=== PATIENT | female | born 1960 | race Caucasian/White ===

== ENCOUNTER 2023-05-01 06:58 | Inpatient (IN) ==
[2023-05-01] MEDS ORDERED: ONDANSETRON INJ 2 MG/ML 2 ML VIAL ONE (06:59)
[2023-05-01] MEDS ORDERED: SODIUM CHLORIDE 0.9% 500 ML IV STA (07:04)
[2023-05-01] MEDS ORDERED: MECLIZINE HCL 25 MG TAB PO STA (07:04)
--- NOTE | 2023-05-01 07:09 | Emergency Department Note ---
Impression & Plan Vertigo ADMIT ED Provider Note HPI: The patient is a 62-year-old female with stated history of vertigo, presents the emergency department with a chief complaint of dizziness and nausea and vomiting that began at 5:30 AM. Patient states that she has been dealing with vertigo now for about 7 months. Patient states she believes this coincides with when she was diagnosed with COVID-19. Patient states that she has not had an episode "this bad" in the past 7 months. Patient states that when she woke to go to the restroom at 5:30 AM she felt as if the room was spinning and felt acutely nauseous. She has had several episodes of vomiting. She therefore contacted E for transport to the ED. On arrival the patient is alert, she is with stable vital signs, she is in mild distress secondary to nausea and vomiting, she answers questions appropriately and does not display any focal deficits. ROS: - Per HPI Differential Diagnosis: Posterior circulation stroke, peripheral vertigo, dehydration/acute kidney injury, critical electrolyte abnormalities, amongst other potential pathologies. *Outpatient medications and allergy history reviewed. *Pertinent external medical records reviewed. 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 Patient's physical exam is reassuring however she is in mild distress secondary to nausea. She states that she has a history of peripheral vertigo but she has not had episodes this severe in the past. Lab work shows no leukocytosis, hemoglobin is normal, platelet count is normal, CMP shows a mild hypokalemia at 3.3, no transaminitis, bilirubin is normal, troponin is negative x1, EKG does not show any acute ischemic changes per my interpretation. CT imaging of the head was obtained that does not show any evidence of an acute intracranial process. Despite receiving IV fluids and Zofran patient states that she continues to feel poorly upon return from CT imaging. She was ordered meclizine and had an episode of vomiting shortly after attempting to take the meclizine. Given this, patient was given a dose of IV Valium. MRI imaging of the brain was ordered however when the patient arrived at MRI she stated that she was certain that she could not tolerate the MRI despite receiving Valium and therefore was returned to her room in the ER. Given that the patient remains symptomatic, I do feel she will require admission. I did discuss the case with the on-call midlevel provider for [facility], Lois Smith NP, who requested CT angiography to be performed given that MRI is unable to be obtained. I think this is reasonable and therefore I did discuss the possibility of obtaining CT angiography of the head and neck with the patient, she does mention a history of a reaction possibly to IV contrast, she tells me she had an outpatient CT scan with contrast done and several hours later when she was at home she developed some lip swelling. She states that she went to urgent care and was treated with Benadryl and the lip swelling went away. She did not have any shortness of breath or swelling in her throat. We did discuss obtaining CT angiography with pretreatment with IV steroids and IV Benadryl and the patient is in agreement. Patient was therefore ordered IV Solu-Medrol and IV Benadryl. CT angiography of the head and neck were obtained and did not show any evidence of obvious vascular abnormalities or large vessel occlusion. There is mention of filling d efect in the superior portion of the chest recommending follow-up CTA of the chest to rule out PE which will be deferred to the admitting team as the patient will be admitted for symptomatic management of refractory vertigo. She does not complain of any chest pain or shortness of breath, EKG does not show any ischemic changes, troponin is negative, I have low suspicion for an acute PE. Patient is in agreement for admission, [facility] hospitalist service was consulted for admission and the patient was placed for admission to the service of Dr. Morales. Consultants: Hospitalist service, Dr. Morales Disposition discussion held by myself with: Patient Diagnosis: 1. Nausea and vomiting, acute 2. Dizziness/vertigo, acute 3. Hypokalemia, acute Disposition: Admission Blake Villeda DO Emergency Medicine Past Med/Surg History Medical History Cardiac murmur >35 yrs ago was told by a dr that she had a possible murmur; had an echo 35 yrs ago unsure where thinks may have been mn; no issues since, was told to cut caffeine Tachycardia pt states has had elevated HR for yrs, was advised to avoid caffeine, FHx of tachycardia-pt unable to provide further details Surgical History Hx of hammer toe correction >30 yrs ago S/P cataract extraction left/right S/P wisdom tooth extraction >45 yrs ago Family History Mother Diabetes Sister Breast cancer Brother Diabetes Social History Smoking Status: Never smoker Second Hand Exposure: No; Do You Dip or Chew Tobacco: No; Hx Alcohol Use: No Hx Substance Use: No Preferred Language: Ecuadorean Communication Ability: Effective Harbor Master Required: No Beliefs That Will Affect Care: None Current Living Situation: Family Current Living Situation Comment: lives w/ daughter Dilma Feels Safe at Home: Yes Assistive Devices: Cane and Glasses Allergies Allergies Allergy/AdvReac Type Severity Reaction Status Date / Time codeine Allergy Unknown RASH Unverified 03/01/22 08:47 Penicillins Allergy Unknown Rash Verified 03/01/22 08:47 Sulfa (Sulfonamide Allergy Unknown RASH Unverified 03/01/22 08:47 Antibiotics) Iodinated Contrast Media Allergy Swelling Verified 05/01/23 08:34 of Lip/Tongue/Throat Home Meds Home Medications Medication Instructions Recorded Confirmed cetirizine 10 mg tablet 10 mg PO DAILY 05/01/23 05/01/23 Results & Data (ED) Vital Signs Vital Signs - 24 hr 05/01/23 07:02 05/01/23 07:08 05/01/23 07:16 Temperature 36.1 C L Temperature Source Axillary Pulse Rate 68 66 Pulse Rate from SpO2 Sensor Pulse Rhythm Regular Pulse Strength Normal Respiratory Rate 18 Respiratory Effort / Characteristics Non-Labored Respiratory Depth Normal Respiratory Pattern Regular Blood Pressure 123/80 Blood Pressure Mean 94 Blood Pressure Position Sitting Pulse Oximetry 98 99 Oxygen Delivery Method Room Air Room Air Oxygen Flow Rate Sepsis Recent Fever Within 48 Hours No Sepsis New/Unexplained Change in Mental Status No Sepsis Action Taken by Nursing No Action Required 05/01/23 07:32 05/01/23 07:54 05/01/23 08:00 Temperature Temperature Source Pulse Rate 61 75 70 Pulse Rate from SpO2 Sensor 62 75 71 Pulse Rhythm Pulse Strength Respiratory Rate 12 10 L 21 Respiratory Effort / Characteristics Respiratory Depth Respiratory Pattern Blood Pressure 141/82 H 146/87 H 138/86 Blood Pressure Mean 101 106 103 Blood Pressure Position Pulse Oximetry 96 95 97 Oxygen Delivery Method Room Air Room Air Nasal Cannula Oxygen Flow Rate 2 Sepsis Recent Fever Within 48 Hours Sepsis New/Unexplained Change in Mental Status Sepsis Action Taken by Nursing 05/01/23 08:24 Temperature Temperature Source Pulse Rate Pulse Rate from SpO2 Sensor 68 Pulse Rhythm Pulse Strength Respiratory Rate Respiratory Effort / Characteristics Respiratory Depth Respiratory Pattern Blood Pressure 132/86 Blood Pressure Mean 101 Blood Pressure Position Pulse Oximetry 96 Oxygen Delivery Method Nasal Cannula Oxygen Flow Rate 2 Sepsis Recent Fever Within 48 Hours Sepsis New/Unexplained Change in Mental Status Sepsis Action Taken by Nursing Laboratory Data 05/01/23 07:08 05/01/23 07:08 Lab Results 05/01/23 05/01/23 05/01/23 Range/Units 07:08 07:08 07:08 WBC 7.77 (4.8-10.8) K/ul RBC 4.85 (4.20-5.40) M/uL Hgb 14.5 (12.0-16.0) g/dl Hct 40.9 (37.0-47.0) % MCV 84.3 (80.0-100.0) fL MCH 29.9 (25.0-34.0) pg MCHC 35.5 (32.0-36.0) g/dL RDW Std Deviation 39.1 (36.4-46.3) fL RDW Coeff of Gale 12.8 (11.5-14.5) % Plt Count 275 (130-400) K/uL MPV 9.8 (9.4-12.4) fL Immature Gran % (Auto) 0.4 % Neut % (Auto) 59.5 % Lymph % (Auto) 30.9 % [place] % (Auto) 6.0 % Eos % (Auto) 2.6 % Baso % (Auto) 0.6 % Neut # (Auto) 4.62 (1.40-6.50) K/uL Lymph # (Auto) 2.40 (1.2-3.4) K/uL [place] # (Auto) 0.47 (0.11-0.59) K/uL Eos # (Auto) 0.20 (0-0.50) K/uL Baso # (Auto) 0.05 (0-0.2) K/uL Immature Gran # (Auto) 0.03 (0.01-0.20) K/uL PT 10.7 (9.0-12.0) Seconds INR 1.0 (0.9-1.1) Sodium 140 (136-145) mmol/L Potassium 3.3 L (3.5-5.1) mmol/L Chloride 108 H (98-107) mmol/L Carbon Dioxide 21 (21-32) mmol/L Anion Gap 11 (3-11) BUN 15 (6-23) mg/dl Creatinine 0.83 (0.6-1.2) mg/dl Est Cr Clr Drug Dosing 94.6 ml/min Est GFR ( Amer) 87.6 ml/min Est GFR (Non-Af Amer) 75.6 ml/min BUN/Creatinine Ratio 18.1 (10-20) Glucose 189 H (70-99(Fasting)) mg/dl Calcium 9.1 (8.6-10.3) mg/dl Total Bilirubin 0.8 (0.2-1.0) mg/dl AST 27 (13-39) U/L ALT 27 (7-52) U/L Alkaline Phosphatase 81 (34-104) U/L Troponin I High Sens 4.2 (0-14) pg/ml Total Protein 6.8 (6.0-8.3) gm/dl Albumin 3.9 (3.4-5.0) gm/dl Globulin 2.9 (2.5-4.0) gm/dl Albumin/Globulin Ratio 1.3 (0.9-2) Lipase 14 (11-82) U/L Administered Medications Potassium Chloride/Sodium Chloride (Normal Saline W/20 Meq Kcl) 20 meq in 1,000 mls @ 150 mls/hr IV .Q6H40M [facility]; Protocol Stop: 05/31/23 07:59 Last Admin: 05/01/23 07:52 Dose: 150 mls/hr Documented By: NH Discontinued Medications Diazepam (Diazepam 5 Mg/Ml Inj 10ml Vial) 3 mg IV NOW STA Stop: 05/01/23 07:37 Last Admin: 05/01/23 07:49 Dose: 3 mg Documented By: NH Diphenhydramine HCl (Diphenhydramine 50 Mg/Ml Vial) 50 mg IV NOW STA Stop: 05/01/23 08:42 Last Admin: 05/01/23 08:51 Dose: 50 mg Documented By: ASAEL Sodium Chloride (Nss) 500 mls @ 999 mls/hr IV .Q31M STA Stop: 05/01/23 07:34 Last Infusion: 05/01/23 08:34 Dose: 0 mls/hr Documented By: Admin: 05/01/23 07:10 Dose: 999 mls/hr Documented By: ASAEL Promethazine HCl (Phenergan) 12.5 mg in 50.5 mls @ 202 mls/hr IV NOW STA Stop: 05/01/23 09:49 Last Admin: 05/01/23 09:39 Dose: 202 mls/hr Documented By: ASAEL Ioversol (Ioversol 350 Mg 125ml Prefilled Syringe) 119 ml IV ONCE ONE Stop: 05/01/23 09:26 Last Admin: 05/01/23 09:18 Dose: 119 ml Documented By: ELVIA Meclizine HCl (Meclizine Hcl 25 Mg Tab) 25 mg PO NOW STA Stop: 05/01/23 07:05 Last Admin: 05/01/23 07:11 Dose: 25 mg Documented By: ASAEL Methylprednisolone (Methylprednisolone 125 Mg/2 Ml Vial) 125 mg IV NOW STA Stop: 05/01/23 08:42 Last Admin: 05/01/23 08:51 Dose: 125 mg Documented By: ASAEL Ondansetron HCl (Ondansetron Inj 2 Mg/Ml 2 Ml Vial) Confirm Administered Dose 4 mg .ROUTE .STK-MED ONE Stop: 05/01/23 07:00 Last Admin: 05/01/23 07:10 Dose: 4 mg Documented By: NH Ondansetron HCl (Ondansetron Inj 2 Mg/Ml 2 Ml Vial) 4 mg IV NOW STA Stop: 05/01/23 08:32 Last Admin: 05/01/23 08:51 Dose: 4 mg Documented By: NH Promethazine HCl (Promethazine 12.5 Mg/50.5 Ml Nss) Confirm Administered Dose 12.5 mg IV .STK-MED ONE Stop: 05/01/23 09:35 Last Admin: 05/01/23 09:39 Dose: Not Given Documented By: ASAEL Imaging Data Radiologist's Impression: Head CT 05/01/23 07:05 CT SCAN OF THE BRAIN WITHOUT IV CONTRAST CLINICAL HISTORY: Vertigo. COMPARISON STUDY: No priors. TECHNIQUE: Unenhanced axial CT scan of the brain is performed from the vertex to the skull base. A dose lowering technique was utilized adhering to the principles of ALARA. CT DOSE: 547.75 mGy.cm FINDINGS: Brain parenchyma: The brain parenchyma is normal in appearance. There is no hemorrhage, mass effect, or evidence of acute territorial ischemia by CT criteria. Contreras-white matter differentiation is preserved. No extra-axial fluid collection is seen. Ventricles, sulci, cisterns: Normal in configuration. Intracranial vasculature: There is atherosclerotic calcification of the cavernous carotid arteries. Calvarium: Unremarkable. Sinuses and mastoids: There is opacification of the visualized right maxillary antrum. The sinus wall is thickened and sclerotic suggesting chronicity. The remaining visualized paranasal sinuses are clear. The mastoid air cells are well pneumatized. Orbits: The bony orbits are grossly intact. IMPRESSION: There is no hemorrhage, mass effect, or evidence of acute territorial ischemia by CT criteria. ACT 112: Negative or not required by law. Electronically signed by: Raghu Guan M.D. 05/01/2023 7:34 AM Head CTA 05/01/23 08:50 HEAD & NECK CTA HISTORY: vertigo TECHNIQUE: Multiaxial CT images of the head were performed following the intravenous administration of contrast to evaluate the major cerebral vessels. Multiaxial CT images of the neck were also performed following the intravenous administration of contrast to evaluate the major cervical vessels. 3D/MIP images were also obtained. Sagittal and coronal reformats were reviewed. A dose lowering technique was utilized adhering to the principles of ALARA. COMPARISON: Head CT 05/01/2023. FINDINGS: There is no mass, hematoma, midline shift, or acute infarct. Visualized intracranial internal carotid arteries, distal vertebral arteries, and basilar artery are widely patent. 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 Chronic opacification of the right maxillary sinus. The major dural venous sinuses appear patent. The aortic arch and proximal great vessels are widely patent. There is no significant stenosis, occlusion, or dissection identified within the bilateral common carotid, internal carotid, or vertebral arteries. Questionable filling defects within the right upper lobe pulmonary arteries on image 1. This could be due to motion artifact. However, a follow-up dedicated chest CTA is recommended to exclude the possibility of a pulmonary embolus. IMPRESSION: 1. No significant stenosis, occlusion, or aneurysm within the [place]. 2. No significant stenosis, occlusion, or dissection identified within the carotid or vertebral arteries. 3. Questionable filling defects within the right upper lobe pulmonary arteries which could be due to motion artifact. Follow-up dedicated chest CTA is recommended to exclude the possibility of a pulmonary embolus. ACT 112: Negative or not required by law. Electronically signed by: Tee Sepulveda M.D. 05/01/2023 9:41 AM Neck CTA 05/01/23 08:50 HEAD & NECK CTA HISTORY: vertigo TECHNIQUE: Multiaxial CT images of the head were performed following the intravenous administration of contrast to evaluate the major cerebral vessels. Multiaxial CT images of the neck were also performed following the intravenous administration of contrast to evaluate the major cervical vessels. 3D/MIP images were also obtained. Sagittal and coronal reformats were reviewed. A dose lowering technique was utilized adhering to the principles of ALARA. COMPARISON: Head CT 05/01/2023. FINDINGS: There is no mass, hematoma, midline shift, or acute infarct. Visualized in tracranial internal carotid arteries, distal vertebral arteries, and basilar artery are widely patent. 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 Chronic opacification of the right maxillary sinus. The major dural venous sinuses appear patent. The aortic arch and proximal great vessels are widely patent. There is no significant stenosis, occlusion, or dissection identified within the bilateral common carotid, internal carotid, or vertebral arteries. Questionable filling defects within the right upper lobe pulmonary arteries on image 1. This could be due to motion artifact. However, a follow-up dedicated chest CTA is recommended to exclude the possibility of a pulmonary embolus. IMPRESSION: 1. No significant stenosis, occlusion, or aneurysm within the [place]. 2. No significant stenosis, occlusion, or dissection identified within the [place] or vertebral arteries. 3. Questionable filling defects within the right upper lobe pulmonary arteries which could be due to motion artifact. Follow-up dedicated chest CTA is recommended to exclude the possibility of a pulmonary embolus. ACT 112: Negative or not required by law. Electronically signed by: Tee Sepulveda M.D. 05/01/2023 9:41 AM Discharge Plan Visit Data Chief Complaint: Vertigo ED Provider: Blake Villeda Discharge Problem: Vertigo Forms Stand Alone Forms: [place] Prescriptions Prescriptions: No Action cetirizine 10 mg Tablet 10 mg PO DAILY Referrals Referrals: Thom Duggan MD [Primary Care Provider] -
[2023-05-01 07:28] LABS: Basophils # (auto) 0.05 K/uL (0-0.2); Basophils % (auto) 0.6 %; Eosinophils % (auto) 2.6 %; Hematocrit (blood only) 40.9 % (37.0-47.0); Hemoglobin 14.5 g/dl (12.0-16.0); Immature Granulocytes # (auto) 0.03 K/uL (0.01-0.20); Immature Granulocytes % (auto) 0.4 %; Lymphocytes % (auto) 30.9 %; Mean Corpuscular Hemoglobin 29.9 pg (25.0-34.0); Mean Corpuscular Hgb Conc 35.5 g/dL (32.0-36.0); Mean Corpuscular Volume 84.3 fL (80.0-100.0); Mean Platelet Volume 9.8 fL (9.4-12.4); Monocytes # (auto) 0.47 K/uL (0.11-0.59); Neutrophils # (auto) 4.62 K/uL (1.40-6.50); Neutrophils % (auto) 59.5 %; Platelet Count 275 K/uL (130-400); RDW Coefficient of Variation 12.8 % (11.5-14.5); RDW Standard Deviation 39.1 fL (36.4-46.3); Red Blood Count 4.85 M/uL (4.20-5.40); White Blood Count 7.77 K/ul (4.8-10.8)
--- NOTE | 2023-05-01 07:35 | CT Scan Report ---
CT SCAN OF THE BRAIN WITHOUT IV CONTRAST CLINICAL HISTORY: Vertigo. COMPARISON STUDY: No priors. TECHNIQUE: Unenhanced axial CT scan of the brain is performed from the vertex to the skull base. A d ose lowering technique was utilized adhering to the principles of ALARA. CT DOSE: 547.75 mGy.cm FINDINGS: Brain parenchyma: The brain parenchyma is normal in appearance. There is no hemorrhage, mass effect, or evidence of acute territorial ischemia by CT criteria. Contreras-white matter differentiation is preser mak. No extra-axial fluid collection is seen. Ventricles, sulci, cisterns: Normal in configuration. Intracranial vasculature: There is atherosclerotic calcification of the cavernous carotid arteries. Calvarium: Unremarkable. Sinuses and mastoids: There is opacification of the visualized right maxillary antrum. The sinus wall is thickened and sclerotic suggesting chronicity. The remaining visualized paranasal sinuses are phyllis ar. The mastoid air cells are well pneumatized. Orbits: The bony orbits are grossly intact. IMPRESSION: There is no hemorrhage, mass effect, or evidence of acute territorial ischemia by CT maddy hargrove. ACT 112: Negative or not required by law. Electronically signed by: Raghu Guan M.D. 05/01/2023 7:34 AM
[2023-05-01 07:45] LABS: Albumin Globulin Ratio 1.3 (0.9-2); Albumin Level 3.9 gm/dl (3.4-5.0); BUN Creatinine Ratio 18.1 (10-20); Bilirubin,Total 0.8 mg/dl (0.2-1.0); Calcium 9.1 mg/dl (8.6-10.3); Creatinine Clr Calc Pharmacy 94.6 ml/min; Est GFR (African American) 87.6 ml/min; Est GFR (Non-African American) 75.6 ml/min; Globulin 2.9 gm/dl (2.5-4.0); Potassium 3.3 mmol/L (3.5-5.1); Total Protein 6.8 gm/dl (6.0-8.3)
[2023-05-01 07:52] LABS: Prothrombin Time 10.7 Seconds (9.0-12.0); Troponin I High Sensitivity 4.2 pg/ml (0-14)
[2023-05-01] MEDS ORDERED: NSS + 20MEQ KCL 20 MEQ/1,000 ML BAG IV SCH (08:00)
[2023-05-01] MEDS ORDERED: ONDANSETRON INJ 2 MG/ML 2 ML VIAL IV STA (08:31)
[2023-05-01] MEDS ORDERED: methylPREDNISolone 125 MG/2 ML VIAL IV STA (08:41)
[2023-05-01] MEDS ORDERED: diphenhydrAMINE 50 MG/ML VIAL IV STA (08:41)
[2023-05-01] MEDS ORDERED: IOVERSOL 350 MG 125mL Prefilled Syringe IV ONE (09:25)
[2023-05-01] MEDS ORDERED: PROMETHAZINE 12.5 MG/50.5 ML NSS IV ONE (09:34)
[2023-05-01] MEDS ORDERED: PROMETHAZINE 12.5 MG/50.5 ML BAG IV STA (09:35)
--- NOTE | 2023-05-01 09:43 | CT Scan Report ---
HEAD & NECK CTA HISTORY: vertigo TECHNIQUE: Multiaxial CT images of the head were performed following the intravenous administration o f contrast to evaluate the major cerebral vessels. Multiaxial CT images of the neck were also perform ed following the intravenous administration of contrast to evaluate the major cervical vessels. 3D/[place] P images were also obtained. Sagittal and coronal reformats were reviewed. A dose lowering technique was utilized adhering to the principles of ALARA. COMPARISON: Head CT 05/01/2023. FINDINGS: There is no mass, hematoma, midline shift, or acute infarct. Visualized intracranial internal carotid arteries, distal vertebral arteries, and basilar artery are widely patent. 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 Chronic opacification of the right maxillary sinus. The major dural venous sinuses appear patent. The aortic arch and proximal great vessels are widely patent. There is no significant stenosis, occ lusion, or dissection identified within the bilateral common carotid, internal carotid, or vertebral arteries. Questionable filling defects within the right upper lobe pulmonary arteries on image 1. Thi s could be due to motion artifact. However, a follow-up dedicated chest CTA is recommended to exclude the possibility of a pulmonary embolus. IMPRESSION: 1. No significant stenosis, occlusion, or aneurysm within the [place]. 2. No significant stenosis, occlusion, or dissection identified within the carotid or vertebral arter ies. 3. Questionable filling defects within the right upper lobe pulmonary arteries which could be due to motion artifact. Follow-up dedicated chest CTA is recommended to exclude the possibility of a pulmona ry embolus. ACT 112: Negative or not required by law. Electronically signed by: Tee Sepulveda M.D. 05/01/2023 9:41 AM
--- NOTE | 2023-05-01 09:43 | CT Scan Report ---
HEAD & NECK CTA HISTORY: vertigo TECHNIQUE: Multiaxial CT images of the head were performed following the intravenous administration o f contrast to evaluate the major cerebral vessels. Multiaxial CT images of the neck were also perform ed following the intravenous administration of contrast to evaluate the major cervical vessels. 3D/ID P images were also obtained. Sagittal and coronal reformats were reviewed. A dose lowering technique was utilized adhering to the principles of ALARA. COMPARISON: Head CT 05/01/2023. FINDINGS: There is no mass, hematoma, midline shift, or acute infarct. Visualized intracranial internal carotid arteries, distal vertebral arteries, and basilar artery are widely patent. 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 Chronic opacification of the right maxillary sinus. The major dural venous sinuses appear patent. The aortic arch and proximal great vessels are widely patent. There is no significant stenosis, occ lusion, or dissection identified within the bilateral common carotid, internal carotid, or vertebral arteries. Questionable filling defects within the right upper lobe pulmonary arteries on image 1. Thi s could be due to motion artifact. However, a follow-up dedicated chest CTA is recommended to exclude the possibility of a pulmonary embolus. IMPRESSION: 1. No significant stenosis, occlusion, or aneurysm within the [place]. 2. No significant stenosis, occlusion, or dissection identified within the carotid or vertebral arter ies. 3. Questionable filling defects within the right upper lobe pulmonary arteries which could be due to motion artifact. Follow-up dedicated chest CTA is recommended to exclude the possibility of a pulmona ry embolus. ACT 112: Negative or not required by law. Electronically signed by: Tee Sepulveda M.D. 05/01/2023 9:41 AM
--- NOTE | 2023-05-01 10:19 | Student Report ---
[facility] Med Student H&P Advanced Practice Practitioner Student Attestation: Do not use for clinical decision making, developing plan of care. Date of Service Date of Service: May 01, 2023 HPI HPI: 62 yo female with pmhx heart murmur and tachycardia present to ED today with vertigo like symptoms. She states that she woke up around 5:30 this morning to go to the bathroom and was profoundly dizzy. She was able to walk to the bathroom, but states that once she sat down, the room was spinning and she was nauseous. She has had several episodes of vomiting this morning which temporarily relieves her symptoms. She denies any vision changes besides the "room spinning", denies LOC, dysataxia, dysphagia, hearing loss. She does report tinnitus in the right ear as well. Pt states that she first started with vertigo after being diagnosed with COVID-19 last May. She says that lying on her side tends to contribute to symptoms. She does not currently take any medications for it and has been stable since her episode in May. She denies fever, chills, night sweats, CP. 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 Besides emesis with vertigo, pt denies any abdominal pain, tenderness, bloating, changes in bowel or bladder habits. Initial CT head was negative, no significant lab abnormalities except K 3.3 which is being repleted in IV fluid. MRI was attempted, but pt became claustrophobic. Plan for CTA of head/neck and admit under hospitalist service. Pt History Pt History: Medical History (Updated 05/01/23 @ 10:06 by Blake Villeda DO) Cardiac murmur Tachycardia Surgical History (Updated 03/01/22 @ 08:55 by Suzan Rosario RN) Hx of hammer toe correction S/P cataract extraction S/P wisdom tooth extraction Family History (Updated 03/01/22 @ 08:55 by Suzan Rosario RN) Mother Diabetes Sister Breast cancer Brother Diabetes Social History Smoking Status: Never smoker Second Hand Exposure: No; Do You Dip or Chew Tobacco: No; Hx Alcohol Use: No Hx Substance Use: No Preferred Language: Romanian Communication Ability: Effective Hospital Insurance Representative Required: No Beliefs That Will Affect Care: None Current Living Situation: Family Current Living Situation Comment: lives w/ daughter Dilma Feels Safe at Home: Yes Assistive Devices: Cane and Glasses ROS ROS: See above for pertinent positives & negatives. A total of 10 systems reviewed and were otherwise negative. Physical Exam Physical Exam: Vital signs reviewed. General: Well-appearing, in some distress r/t vertigo, nausea. HEENT: No scleral icterus, PERRLA, neck supple. Atraumatic. Mucous membranes dry, pink. Cardiovascular: Regular rate and rhythm, no extra sounds. Pulmonary: Clear to auscultation bilaterally, normal work of breathing. Abdomen: Soft, nontender, nondistended, positive bowel sounds. Musculoskeletal: Atraumatic, no peripheral edema. Neurologic: Patient awake alert and oriented x 3, full strength in all 4 extremities. Skin: Warm, dry, no rash Results Results: Vital Signs Temp 36.1 C L 05/01/23 07:02 Pulse 70 05/01/23 08:00 Resp 21 05/01/23 08:00 BP 132/86 05/01/23 08:24 Pulse Ox 96 05/01/23 08:24 O2 Del Method Nasal Cannula 05/01/23 08:24 O2 Flow Rate 2 05/01/23 08:24 Intake & Output 04/30/23 05/01/23 05/01/23 18:59 06:59 18:59 Intake Total 500 / 500 Balance 500 / 500 Weight 124.3 kg Intake: IV 500 / 500 Sodium Chloride 0.9% 500 ml @ 500 / 500 999 mls/hr IV .Q31M STA Rx#: [id number] Other: Weight Measurement Method Built in [facility] Laboratory Results WBC 7.77 K/ul (4.8-10.8) 05/01/23 07:08 RBC 4.85 M/uL (4.20-5.40) 05/01/23 07:08 Hgb 14.5 g/dl (12.0-16.0) 05/01/23 07:08 Hct 40.9 % (37.0-47.0) 05/01/23 07:08 MCV 84.3 fL (80.0-100.0) 05/01/23 07:08 MCH 29.9 pg (25.0-34.0) 05/01/23 07:08 MCHC 35.5 g/dL (32.0-36.0) 05/01/23 07:08 RDW Std Deviation 39.1 fL (36.4-46.3) 05/01/23 07:08 RDW Coeff of Gale 12.8 % (11.5-14.5) 05/01/23 07:08 Plt Count 275 K/uL (130-400) 05/01/23 07:08 MPV 9.8 fL (9.4-12.4) 05/01/23 07:08 Immature Gran % (Auto) 0.4 % 05/01/23 07:08 Neut % (Auto) 59.5 % 05/01/23 07:08 Lymph % (Auto) 30.9 % 05/01/23 07:08 [place] % (Auto) 6.0 % 05/01/23 07:08 Eos % (Auto) 2.6 % 05/01/23 07:08 Baso % (Auto) 0.6 % 05/01/23 07:08 Neut # (Auto) 4.62 K/uL (1.40-6.50) 05/01/23 07:08 Lymph # (Auto) 2.40 K/uL (1.2-3.4) 05/01/23 07:08 [place] # (Auto) 0.47 K/uL (0.11-0.59) 05/01/23 07:08 Eos # (Auto) 0.20 K/uL (0-0.50) 05/01/23 07:08 Baso # (Auto) 0.05 K/uL (0-0.2) 05/01/23 07:08 Immature Gran # (Auto) 0.03 K/uL (0.01-0.20) 05/01/23 07:08 PT 10.7 Seconds (9.0-12.0) 05/01/23 07:08 INR 1.0 (0.9-1.1) 05/01/23 07:08 Sodium 140 mmol/L (136-145) 05/01/23 07:08 Potassium 3.3 mmol/L (3.5-5.1) L 05/01/23 07:08 Chloride 108 mmol/L (98-107) H 05/01/23 07:08 Carbon Dioxide 21 mmol/L (21-32) 05/01/23 07:08 Anion Gap 11 (3-11) 08/08/23 07:08 BUN 15 mg/dl (6-23) 05/01/23 07:08 Creatinine 0.83 mg/dl (0.6-1.2) 05/01/23 07:08 Est Cr Clr Drug Dosing 94.6 ml/min 05/01/23 07:08 Est GFR ( Amer) 87.6 ml/min 05/01/23 07:08 Est GFR (Non-Af Amer) 75.6 ml/min 05/01/23 07:08 BUN/Creatinine Ratio 18.1 (10-20) 05/01/23 07:08 Glucose 189 mg/dl (70-99(Fasting)) H 05/01/23 07:08 Calcium 9.1 mg/dl (8.6-10.3) 05/01/23 07:08 Total Bilirubin 0.8 mg/dl (0.2-1.0) 05/01/23 07:08 AST 27 U/L (13-39) 05/01/23 07:08 ALT 27 U/L (7-52) 05/01/23 07:08 Alkaline Phosphatase 81 U/L (34-104) 05/01/23 07:08 Troponin I High Sens 4.2 pg/ml (0-14) 05/01/23 07:08 Total Protein 6.8 gm/dl (6.0-8.3) 05/01/23 07:08 Albumin 3.9 gm/dl (3.4-5.0) 05/01/23 07:08 Globulin 2.9 gm/dl (2.5-4.0) 05/01/23 07:08 Albumin/Globulin Ratio 1.3 (0.9-2) 05/01/23 07:08 Lipase 14 U/L (11-82) 05/01/23 07:[address] 05/01/23 07:05 CT SCAN OF THE BRAIN WITHOUT IV CONTRAST CLINICAL HISTORY: Vertigo. COMPARISON STUDY: No priors. TECHNIQUE: Unenhanced axial CT scan of the brain is performed from the vertex to the skull base. A dose lowering technique was utilized adhering to the principles of ALARA. CT DOSE: 547.75 mGy.cm FINDINGS: Brain parenchyma: The brain parenchyma is normal in appearance. There is no hemorrhage, mass effect, or evidence of acute territorial ischemia by CT criteria. [place]-white matter differentiation is preserved. No extra-axial fluid collection is seen. Ventricles, sulci, cisterns: Normal in configuration. Intracranial vasculature: There is atherosclerotic calcification of the cavernous carotid arteries. Calvarium: Unremarkable. Sinuses and mastoids: There is opacification of the visualized right maxillary antrum. The sinus wall is thickened and sclerotic suggesting chronicity. The remaining visualized paranasal sinuses are clear. The mastoid air cells are well pneumatized. Orbits: The bony orbits are grossly intact. IMPRESSION: There is no hemorrhage, mass effect, or evidence of acute territorial ischemia by CT criteria. ACT 112: Negative or not required by law. Electronically signed by: Raghu Guan M.D. 05/01/2023 7:34 AM Head CTA 05/01/23 08:50 HEAD & NECK CTA HISTORY: vertigo TECHNIQUE: Multiaxial CT images of the head were performed following the intravenous administration of contrast to evaluate the major cerebral vessels. Multiaxial CT images of the neck were also performed following the intravenous administration of contrast to evaluate the major cervical vessels. 3D/MIP images were also obtained. Sagittal and coronal reformats were reviewed. A dose lowering technique was utilized adhering to the principles of ALARA. COMPARISON: Head CT 05/01/2023. FINDINGS: There is no mass, hematoma, midline shift, or acute infarct. Visualized intracranial internal carotid arteries, distal vertebral arteries, and basilar artery are widely patent. There is no significant stenosis, occlusion, or aneurysm seen within the bilateral ACAs, MCAs, or chainstitch pants outseamer. Chronic opacification of the right maxillary sinus. The major dural venous sinuses appear patent. The aortic arch and proximal great vessels are widely patent. There is no significant stenosis, occlusion, or dissection identified within the bilateral common carotid, internal carotid, or vertebral arteries. Questionable filling defects within the right upper lobe pulmonary arteries on image 1. This could be due to motion artifact. However, a follow-up dedicated chest CTA is recommended to exclude the possibility of a pulmonary embolus. IMPRESSION: 1. No significant stenosis, occlusion, or aneurysm within the [place]. 2. No significant stenosis, occlusion, or dissection identified within the carotid or vertebral arteries. 3. Questionable filling defects within the right upper lobe pulmonary arteries which could be due to motion artifact. Follow-up dedicated chest CTA is recommended to exclude the possibility of a pulmonary embolus. ACT 112: Negative or not required by law. Electronically signed by: Tee Sepulveda M.D. 05/01/2023 9:41 AM Neck CTA 05/01/23 08:50 HEAD & NECK CTA HISTORY: vertigo TECHNIQUE: Multiaxial CT images of the head were performed following the intravenous administration of contrast to evaluate the major cerebral vessels. Multiaxial CT images of the neck were also performed following the intravenous administration of contrast to evaluate the major cervical vessels. 3D/MIP images were also obtained. Sagittal and coronal reformats were reviewed. A dose lowering technique was utilized adhering to the principles of ALARA. COMPARISON: Head CT 05/01/2023. FINDINGS: There is no mass, hematoma, midline shift, or acute infarct. Visualized intracranial internal carotid arteries, distal vertebral arteries, and basilar artery are widely patent. There is no significant stenosis, occlusion, or aneurysm seen within the bilateral ACAs, MCAs, or chainstitch pants outseamer. Chronic opacification of the right maxillary sinus. The major dural venous sinuses appear patent. The aortic arch and proximal great vessels are widely patent. There is no sign ificant stenosis, occlusion, or dissection identified within the bilateral common carotid, internal carotid, or vertebral arteries. Questionable filling defects within the right upper lobe pulmonary arteries on image 1. This could be due to motion artifact. However, a follow-up dedicated chest CTA is recommended to exclude the possibility of a pulmonary embolus. IMPRESSION: 1. No significant stenosis, occlusion, or aneurysm within the [place]. 2. No significant stenosis, occlusion, or dissection identified within the carotid or vertebral arteries. 3. Questionable filling defects within the right upper lobe pulmonary arteries which could be due to motion artifact. Follow-up dedicated chest CTA is recommended to exclude the possibility of a pulmonary embolus. ACT 112: Negative or not required by law. Electronically signed by: Tee Sepulveda M.D. 05/01/2023 9:41 AM Code/VTE Code/VTE: See provider note. A&P A&P: 1. Vertigo with nausea and vomiting Pt received diazepam, ondansetron, and meclizine in the ED. Continued with symptoms, vomiting. Received one dose of promethazine as well. Placed on O2 for a brief period d/t drowsiness after medications, now RA. CT/CTA negative for CVA, intracranial changes. Pt most likely with BVVP. Pt will need MRI for further stroke workup once pt can tolerate lying flat. Admit to Hospitalist service with telemetry VS per protocol I&O every shift Daiy CBC, BMP, Magnesium NPO for now Continue NSS w/20mEq KCl x1 bag, follow with 2 doses 10mEq KCl IV, then NSS continuous. Continue meclizine and Zofran for symptoms. Consult to PT for vertigo therapy 2. Possible PE CTA showed possible right PA pulmonary embolism. Pt will require 24hr for new scan d/t dye load today. D-dimer 950, BLE duplex ordered. Heparin drip with PTT protocol. Maintain O2 sat 94-98% 3. Diet/Bowel regimen NPO for now Continue antiemetics with N/V PRN Will add bowel regimen for constipation if needed. 4. DVT Proph SCDs to BLE Will obtained BLE duplex d/t CT scan with poss PE Heparin drip as above 5. Disposition Admit to telemetry under hospitalist service CC Time CC Time: Student note, nonbillable.
--- NOTE | 2023-05-01 10:37 | Communication Note ---
Date of Service: May 01, 2023 62 yo female presents to the ER after waking up with severe vertigo associated with vomiting. She reports 7 months of restriction in ROM not able to move her head too far to either side and not able to lie on either side or else she would become dizzy. This dizziness would resolve after sitting still for a few minutes. She reports only once where it was more debilitating, but symptoms were not as intense as they are today. She does report waking up with headaches, which is new for her, but she does feel rested. She reports that she has not been hydrating well in the last couple of days. She cannot identify a trigger for her vertigo and denies any recent illnesses, especially no URI symptoms in recent weeks. She denies hearing loss or acute changes in her vision. She does report a slight headache across her forehead. She is still nauseous despite multiple antiemetics and attempts to help her feel better. Denies SOB or chest pain. Denies any blood per rectum or other issues with bleeding or bruising. On exam she appears uncomfortable and is sitting up in the bed with her eyes closed. Clear mentation. BP 149/91 and HR 79 94% RA and RR 18. She is morbidly obese. Eye exam reveals PERRL, EOMI with horizontal nystagmus with fast phase towards the left and slow phase toward the right. External auditory canals are clear and tympanic membranes are pearly without middle ear effusion. Oropharynx is clear. Lungs clear to auscultation, CV exam reveals S1.2 heard without murmurs or edema. No gross focal neuromuscular deficits. Workup including a head CT and head and neck CTA with contrast was negative for acute intracranial abnormality. There was a concern for upper lung PE vs motion artifact. D dimer checked and was elevated at 950. Chem panel within normal limits aside from a K 3.3. EKG reviewed SR66 with prolonged QTc 496ms. 1. Vertigo-suspect BPPV, uncertain trigger. PT for Tresa today. Cont symptom atic treatment with IV hydration, meclizine and antiemetics. MRI to rule out stroke or other structural abnormality that may be contributing. Considered less likely with no additional stroke like symptoms present. 2. Hypokalemia-replace and recheck 3. Vomiting 2/2 #1-cont plan as noted above. 4. Possible PE-D dimer did not rule out VTE. Given recent contrast administration today, will empirically treat and repeat contrasted study in 48 hours. Cont IV hydration and monitor for any allergic reaction given h/o contrast allergy. 5. Morbid obesity-lifestyle changes recommended. Racheal Morales DO [facility] Hospitalist
[2023-05-01 11:07] LABS: D Dimer 950 ug/L FEU (0-500)
[2023-05-01] MEDS ORDERED: Heparin IV Adult Wt-Based Standard WITH Bolus Protocol IV STA (11:12)
--- NOTE | 2023-05-01 11:20 | History & Physical Report ---
Date of Service May 01, 2023 Assessment & Plan (1) Vertigo: Plan: Admit to telemetry Patient presenting from home with reports of intractable dizziness. Reports a prior history of vertigo. In the ED, patient received meclizine, Valium, IVF, Zofran and continues to have significant symptoms. She also received IV Solu-Medrol and IV diphenhydramine for premedication for CTA due to dye allergy. Likely BPPV Head/neck CTAs unremarkable for intracranial findings Brain MRI when patient is able to tolerate PT consult for Tresa maneuver Continue supportive care with IVF, meclizine, antiemetics (2) Abnormal CT scan: Plan: Incidental finding of questionable filling defects within the right upper lobe pulmonary arteries which could be due to motion artifact. D-dimer elevated, 950 Will empirically start IV heparin and obtain CTA chest in 24 hours given dye load received today BLLE dopplers for completeness DVT PROPHYLAXIS On IV heparin as above Patient seen in collaboration with Dr. Morales. I spent a total of 75 minutes coordinating, documenting, and providing care for this patient excluding time spent in the performance of separately billed services. This included personally reviewing all current laboratories and imaging studies, medication reconciliation, outpatient chart review, and discussion with specialists. History of Present Illness Chief Complaint: Dizziness Primary Care Provider: hTom Duggan MD 62-year-old female with PMH seasonal allergies, osteoarthritis, and other problems to below who presents to the ED for evaluation of dizziness. History obtained from the patient and review of outpatient PCP records. Patient reports a history of vertigo about 1 year ago while she had COVID-19. Patient reports it was relatively self-limiting and she did not seek medical care. Patient reports she woke up around 5 AM this morning and when she got out of bed the room was spinning around her. She was able to ambulate to the bathroom and had nausea, vomiting, diarrhea. Patient then presented to the ED for further evaluation. Patient reports she otherwise has been feeling well recently. Reports that during her previous episode of vertigo, she noted that it was brought on by laying on her side which she does not do anymore. No other recent illnesses, fevers, chills. Denies chest pain. Reports mild shortness of breath. No syncopal event. Denies abdominal pain. No urinary symptoms. In the ED, head/neck CTAs are unremarkable. Patient received diazepam, meclizine, Zofran, IVF and continues to have significant symptoms. She also received IV diphenhydramine and IV Solu-Medrol for premedication for CTA due to dye allergy. Allergies Allergy/AdvReac Type Severity Reaction Status Date / Time codeine Allergy Unknown RASH Unverified 03/01/22 08:47 Penicillins Allergy Unknown Rash Verified 03/01/22 08:47 Sulfa (Sulfonamide Allergy Unknown RASH Unverified 03/01/22 08:47 Antibiotics) Iodinated Contrast Media Allergy Swelling Verified 05/01/23 08:34 of Lip/Tongue/Throat Home Medications Medication Instructions Recorded Confirmed Type cetirizine 10 mg tablet 10 mg PO DAILY 05/01/23 05/01/23 History Past Med/Surg History Medical History Cardiac murmur >35 yrs ago was told by a dr that she had a possible murmur; had an echo 35 yrs ago unsure where thinks may have been mn; no issues since, was told to cut caffeine COVID-19 Osteoarthritis Seasonal allergies Tachycardia pt states has had elevated HR for yrs, was advised to avoid caffeine, FHx of tachycardia-pt unable to provide further details Surgical History Hx of hammer toe correction >30 yrs ago S/P cataract extraction left/right S/P wisdom tooth extraction >45 yrs ago Family History Mother Diabetes Sister Breast cancer Brother Diabetes Social History Smoking Status: Never smoker Second Hand Exposure: No; Do You Dip or Chew Tobacco: No; Tobacco Cessation Education Requested by Patient: No Hx Alcohol Use: No Hx Substance Use: No Preferred Language: Arabic Communication Ability: Effective Drapery Worker Required: No Beliefs That Will Affect Care: None Current Living Situation: Family Current Living Situation Comment: lives with daughter Other Information That Helps Us Care for You: No Feels Safe at Home: Yes Safety Concerns: Feels Safe At This Time Assistive Devices: Cane and Glasses Review of Systems Review of Systems: ROS per HPI, all other systems reviewed and negative Physical Exam Constitutional: + ill appearing; no acute distress Eyes: PERRL, conjunctivae normal, anicteric sclerae ENMT: external ear and nose normal, oropharynx normal Respiratory: normal respiratory effort, lungs clear to auscultation Cardiovascular: Rate/Rhythm: regular rate and regular rhythm Vessels: normal peripheral pulses Extremities: no edema Gastrointestinal (Abdomen): normal bowel sounds, soft, nontender, no hepatosplenomegaly one episode of vomiting during exam Musculoskeletal: no cyanosis or clubbing, extremities motor strength 5/5 Skin: no rashes, warm and dry Neurologic: PERRL, EOMI, accommodation nl, no face palsy, no dysarthria moves all extremities and awake; no focal motor deficits Motor/Sensory: no pronator drift Coordination: normal [id number] test and normal [id number] test Psychiatric: A+Ox3, euthymic affect Results & Data Results & Data Vital Signs (Past 12 Hours) Vital Signs Temp Pulse Pulse Resp BP BP Pulse Ox 05/01/23 10:30 79 18 149/91 H 94 05/01/23 10:30 76 20 149/91 H 95 05/01/23 10:23 71 14 151/92 H 94 05/01/23 10:10 80 12 94 05/01/23 09:50 70 20 93 05/01/23 09:30 71 13 93 05/01/23 09:25 66 19 96 05/01/23 08:30 129/80 05/01/23 10:23 36.4 C L 05/01/23 08:24 132/86 96 05/01/23 08:00 70 21 138/86 97 05/01/23 07:54 75 10 L 146/87 H 95 05/01/23 07:32 61 12 141/82 H 96 05/01/23 07:16 99 05/01/23 07:08 66 05/01/23 07:02 36.1 C L 68 18 123/80 98 O2 Del Method O2 Flow Rate 05/01/23 10:30 Room Air 05/01/23 10:30 Room Air 05/01/23 10:23 Room Air 05/01/23 10:10 Room Air 05/01/23 09:50 Room Air 05/01/23 09:30 Room Air 05/01/23 09:25 Room Air 05/01/23 08:30 05/01/23 10:23 05/01/23 08:24 Nasal Cannula 2 05/01/23 08:00 Nasal Cannula 2 05/01/23 07:54 Room Air 05/01/23 07:32 Room Air 05/01/23 07:16 Room Air 05/01/23 07:08 05/01/23 07:02 Room Air Laboratory Results Short CBC 05/01/23 Range/Units 07:08 WBC 7.77 (4.8-10.8) K/ul Hgb 14.5 (12.0-16.0) g/dl Hct 40.9 (37.0-47.0) % Plt Count 275 (130-400) K/uL BMP 05/01/23 07:08 Sodium 140 Potassium 3.3 L Chloride 108 H Carbon Dioxide 21 BUN 15 Creatinine 0.83 Glucose 189 H Calcium 9.1 Liver Function 05/01/23 Range/Units 07:08 Total Bilirubin 0.8 (0.2-1.0) mg/dl AST 27 (13-39) U/L ALT 27 (7-52) U/L Alkaline Phosphatase 81 (34-104) U/L Albumin 3.9 (3.4-5.0) gm/dl Diagnostic Findings Head CT 05/01/23 07:05 CT SCAN OF THE BRAIN WITHOUT IV CONTRAST CLINICAL HISTORY: Vertigo. COMPARISON STUDY: No priors. TECHNIQUE: Unenhanced axial CT scan of the brain is performed from the vertex to the skull base. A dose lowering technique was utilized adhering to the principles of ALARA. CT DOSE: 547.75 mGy.cm FINDINGS: Brain parenchyma: The brain parenchyma is normal in appearance. There is no hemorrhage, mass effect, or evidence of acute territorial ischemia by CT criteria. Contreras-white matter differentiation is preserved. No extra-axial fluid collection is seen. Ventricles, sulci, cisterns: Normal in configuration. Intracranial vasculature: There is atherosclerotic calcification of the cavernous carotid arteries. Calvarium: Unremarkable. Sinuses and mastoids: There is opacification of the visualized right maxillary antrum. The sinus wall is thickened and sclerotic suggesting chronicity. The remaining visualized paranasal sinuses are clear. The mastoid air cells are well pneumatized. Orbits: The bony orbits are grossly intact. IMPRESSION: There is no hemorrhage, mass effect, or evidence of acute territorial ischemia by CT criteria. ACT 112: Negative or not required by law. Electronically signed by: Raghu Guan M.D. 05/01/2023 7:34 AM Head CTA 05/01/23 08:50 HEAD & NECK CTA HISTORY: vertigo TECHNIQUE: Multiaxial CT images of the head were performed following the intravenous administration of contrast to evaluate the major cerebral vessels. Multiaxial CT images of the neck were also performed following the intravenous administration of contrast to evaluate the major cervical vessels. 3D/MIP images were also obtained. Sagittal and coronal reformats were reviewed. A dose lowering technique was utilized adhering to the principles of ALARA. COMPARISON: Head CT 05/01/2023. FINDINGS: There is no mass, hematoma, midline shift, or acute infarct. Visualized intracranial internal carotid arteries, distal vertebral arteries, and basilar artery are widely patent. There is no significant stenosis, occlusion, or aneurysm seen within the bilateral ACAs, MCAs, or reproducer. Chronic opacification of the right maxillary sinus. The major dural venous sinuses appear patent. The aortic arch and proximal great vessels are widely patent. There is no significant stenosis, occlusion, or dissection identified within the bilateral common carotid, internal carotid, or vertebral arteries. Questionable filling defects within the right upper lobe pulmonary arteries on image 1. This could be due to motion artifact. However, a follow-up dedicated chest CTA is recommended to exclude the possibility of a pulmonary embolus. IMPRESSION: 1. No significant stenosis, occlusion, or aneurysm within the [place]. 2. No significant stenosis, occlusion, or dissection identified within the carotid or vertebral arteries. 3. Questionable filling defects within the right upper lobe pulmonary arteries which could be due to motion artifact. Follow-up dedicated chest CTA is recommended to exclude the possibility of a pulmonary embolus. ACT 112: Negative or not required by law. Electronically signed by: Tee Sepulveda M.D. 05/01/2023 9:41 AM Neck CTA 05/01/23 08:50 HEAD & NECK CTA HISTORY: vertigo TECHNIQUE: Multiaxial CT images of the head were performed following the intravenous administration of contrast to evaluate the major cerebral vessels. Multiaxial CT images of the neck were also performed following the intravenous administration of contrast to evaluate the major cervical vessels. 3D/MIP images were also obtained. Sagittal and coronal reformats were reviewed. A dose lowering technique was utilized adhering to the principles of ALARA. COMPARISON: Head CT 05/01/2023. FINDINGS: There is no mass, hematoma, midline shift, or acute infarct. Visualized intracranial internal carotid arteries, distal vertebral arteries, and basilar artery are widely patent. There is no significant stenosis, occlusion, or aneurysm seen within the bilateral ACAs, MCAs, or reproducer. Chronic opacification of the right maxillary sinus. The major dural venous sinuses appear patent. The aortic arch and proximal great vessels are widely patent. There is no significant stenosis, occlusion, or dissection identified within the bilateral common carotid, internal carotid, or vertebral arteries. Questionable filling defects within the right upper lobe pulmonary arteries on image 1. This could be due to motion artifact. However, a follow-up dedicated chest CTA is recommended to exclude the possibility of a pulmonary embolus. IMPRESSION: 1. No significant stenosis, occlusion, or aneurysm within the [place] of [place]. 2. No significant stenosis, occlusion, or dissection identified within the ca rotid or vertebral arteries. 3. Questionable filling defects within the right upper lobe pulmonary arteries which could be due to motion artifact. Follow-up dedicated chest CTA is recommended to exclude the possibility of a pulmonary embolus. ACT 112: Negative or not required by law. Electronically signed by: Tee Sepulveda M.D. 05/01/2023 9:41 AM Code Status & VTE Plan VTE Prophylaxis Plan VTE Prophylaxis will be ordered: Yes Supervising Physician Co-Signing Physician Notes I have seen and examined the patient and have discussed the case with the provider above. I agree with the assessment and plan as stated with the fo llowing exceptions. 62 yo female presents to the ER after waking up with severe vertigo associated with vomiting. She reports 7 months of restriction in ROM not able to move her head too far to either side and not able to lie on either side or else she would become dizzy. This dizziness would resolve after sitting still for a few minutes. She reports only once where it was more debilitating, but symptoms were not as intense as they are today. She does report waking up with headaches, which is new for her, but she does feel rested. She reports that she has not been hydrating well in the last couple of days. She cannot identify a trigger for her vertigo and denies any recent illnesses, especially no URI symptoms in recent weeks. She denies hearing loss or acute changes in her vision. She does report a slight headache across her forehead. She is still nauseous despite multiple antiemetics and attempts to help her feel better. Denies SOB or chest pain. Denies any blood per rectum or other issues with bleeding or bruising. On exam she appears uncomfortable and is sitting up in the bed with her eyes closed. Clear mentation. BP 149/91 and HR 79 94% RA and RR 18. She is morb idly obese. Eye exam reveals PERRL, EOMI with horizontal nystagmus with fast phase towards the left and slow phase toward the right. External auditory canals are clear and tympanic membranes are pearly without middle ear effusion. Oropharynx is clear. Lungs clear to auscultation, CV exam reveals S1.2 heard without murmurs or edema. No gross focal neuromuscular deficits. Workup including a head CT and head and neck CTA with contrast was negative for acute intracranial abnormality. There was a concern for upper lung PE vs motion artifact. D dimer checked and was elevated at 950. Chem panel within normal limits aside from a K 3.3. EKG reviewed SR66 with prolonged QTc 496ms. 1. Vertigo-suspect BPPV, uncertain trigger. PT for Tresa today. Cont symptomatic treatment with IV hydration, meclizine and antiemetics. MRI to rule out stroke or other structural abnormality that may be contributing. Considered less likely with no additional stroke like symptoms present. 2. Hypokalemia-replace and recheck 3. Vomiting 2/2 #1-cont plan as noted above. 4. Possible PE-D dimer did not rule out VTE. Given recent contrast administration today, will empirically treat and repeat contrasted study in 48 hours. Cont IV hydration and monitor for any allergic reaction given h/o contrast allergy. 5. Morbid obesity-lifestyle changes recommended. Racheal Morales DO [facility] Hospitalist UPDATE: I did speak with the physical therapist who went to see the patient twice, and she declined Tresa on the second attempt 2/2 illness. They will attempt to treat her again in am.
[2023-05-01] MEDS ORDERED: HEPARIN SOD (PORCINE) 1000 UNIT/ML IV ONE (11:27)
[2023-05-01] MEDS ORDERED: ACETAMINOPHEN 325 MG TAB PO PRN (11:37)
[2023-05-01] MEDS ORDERED: MECLIZINE HCL 25 MG TAB PO PRN ×2 (11:37→13:41)
[2023-05-01] MEDS: HEPARIN SODIUM/DEXTROSE 25,000 UNITS/500 ML BAG IV SCH (11:56)
[2023-05-01] MEDS: SODIUM CHLORIDE 0.9% 1000ML 1,000 ML IV SCH ×2 (12:01→22:12)
--- NOTE | 2023-05-01 12:03 | Electrocardiogram Report ---
Test Reason : Blood Pressure : / mmHG Vent. Rate : 066 BPM Atrial Rate : 066 BPM P-R Int : 168 ms QRS Dur : 084 ms QT Int : 474 ms P-R-T Axes : 029 066 071 degrees QTc Int : 496 ms Normal sinus rhythm Prolonged QT Abnormal ECG When compared with ECG of 24-MAY-2022 08:43, Vent. rate has decreased BY 42 BPM Confirmed by Az Zimmer ([id number]) on 05/01/2023 12:02:35 PM Referred By: REFERRED SELF Confirmed By:Reinier Zimmer
[2023-05-01 12:12] LABS: Magnesium 1.9 mg/dl (1.7-2.4)
[2023-05-01] MEDS ORDERED: PROMETHAZINE HCL 25 MG in SODIUM CHLORIDE 0.9% 50 ML IV PRN (13:41)
--- NOTE | 2023-05-01 13:58 | Ultrasound Report ---
ULTRASOUND BILATERAL LOWER EXTREMITY VENOUS CLINICAL HISTORY: Elevated d-dimer. COMPARISON STUDY: No priors. TECHNIQUE: Real-time, grayscale, and color Doppler sonography of the deep veins of the right and left lower extremity was performed from the inguinal crease to the calf. Compression and augmentation wer e utilized. FINDINGS: There is no sonographic evidence of deep venous thrombosis identified in the right or left lower extremity. The common femoral, superficial femoral, and popliteal veins are patent and normally compressible bilaterally. The greater saphenous vein and the profunda femoris vein at the junction w ith the common femoral vein are clear in both legs. The visualized calf veins are patent bilaterally. IMPRESSION: There is no sonographic evidence of deep venous thrombosis identified in the right or lef t lower extremity. ACT 112: Negative or not required by law. Electronically signed by: Raghu Guan M.D. 05/01/2023 1:57 PM
[2023-05-01] MEDS: POTASSIUM CHLORIDE / WTR 10 MEQ/100 ML PLCT IV SCH ×2 (14:34→15:36)
[2023-05-01] MEDS: ONDANSETRON INJ 2 MG/ML 2 ML VIAL IV PRN (17:06)
[2023-05-01 19:40] LABS: Partial Thromboplastin Ratio > 4.9
[2023-05-01 19:51] LABS: Partial Thromboplastin Time > 139.0 Seconds (21.0-31.0)
[2023-05-01] MEDS ORDERED: PROMETHAZINE HCL 12.5 MG in SODIUM CHLORIDE 0.9% 50 ML IV PRN (20:28)
[2023-05-02 00:11] LABS: Partial Thromboplastin Ratio 1.4; Partial Thromboplastin Time 39.8 Seconds (21.0-31.0)
[2023-05-02] MEDS: ONDANSETRON INJ 2 MG/ML 2 ML VIAL IV PRN (01:15)
[2023-05-02 07:02] LABS: Hematocrit (blood only) 37.6 % (37.0-47.0); Hemoglobin 13.2 g/dl (12.0-16.0); Mean Corpuscular Hemoglobin 30.1 pg (25.0-34.0); Mean Corpuscular Hgb Conc 35.1 g/dL (32.0-36.0); Mean Corpuscular Volume 85.8 fL (80.0-100.0); Platelet Count 259 K/uL (130-400); RDW Standard Deviation 41.1 fL (36.4-46.3); Red Blood Count 4.38 M/uL (4.20-5.40); White Blood Count 11.45 K/ul (4.8-10.8)
[2023-05-02 07:25] LABS: BUN Creatinine Ratio 17.8 (10-20); Calcium 8.4 mg/dl (8.6-10.3); Creatinine Clr Calc Pharmacy 105.4 ml/min; Est GFR (African American) 102.3 ml/min; Est GFR (Non-African American) 88.3 ml/min; Potassium 3.5 mmol/L (3.5-5.1)
[2023-05-02 07:39] LABS: Partial Thromboplastin Ratio 2.3
[2023-05-02 07:43] LABS: Partial Thromboplastin Time 65.2 Seconds (21.0-31.0)
[2023-05-02] MEDS: HEPARIN SODIUM/DEXTROSE 25,000 UNITS/500 ML BAG IV SCH ×2 (08:03→23:15)
[2023-05-02] MEDS: SODIUM CHLORIDE 0.9% 1000ML 1,000 ML IV SCH (08:04)
--- NOTE | 2023-05-02 10:23 | Magnetic Resonance Report ---
MR brain wo con CLINICAL HISTORY: vertigo TECHNIQUE: Multiplanar and multisequence MR images of the brain were obtained without intravenous con trast. Comparison: Comparison is made to CTA head and neck 05/01/2023 FINDINGS: Restricted diffusion is seen in the bilateral median posterior cerebellum. There is associated edema. The white matter is unremarkable. The ventricular system is normal in appearance. No mass is seen. T here is no mass effect or midline shift. There is no evidence of acute intraparenchymal hemorrhage. N o extra axial fluid collections are seen. The corpus callosum, pituitary gland, and cerebellar tonsil s appear grossly unremarkable. Flow voids of the major intracranial arterial vessels are identified. Right maxillary sinus disease i s seen. IMPRESSION: Restricted diffusion and edema in the bilateral medial and posterior inferior cerebellum concerning f or acute infarct of uncertain etiology. Occipital sinus occlusion cannot be excluded. ACT 112: Negative or not required by law. Electronically signed by: Yosef Quinones M.D. 05/02/2023 10:21 AM
[2023-05-02] MEDS: methylPREDNISolone 40 MG in SYRINGE 0 ML IV SCH ×2 (11:19→15:06)
[2023-05-02] MEDS ORDERED: diphenhydrAMINE 50 MG/ML VIAL IV SCH (15:00)
--- NOTE | 2023-05-02 16:24 | Neurology Consultation ---
Date of Consultation May 02, 2023 Assessment & Plan (1) Cerebellar stroke: Cerebellar stroke presenting with isolated vertigo, no other deficits noted on exam. Concern for embolic phenomenon as no significant large vessel athero. Would continue telemetry, echo is pending. If PEs are found on CTA chest then a nticoagulation is reasonable, otherwise would just use aspirin 81mg daily for secondary stroke prevention. Statin if LDL >70. Therapy evals. Will need zio patch for afib detection as this is the most likely cause. While unlikely, given the size of the stroke would repeat a head CT tomorrow afternoon to assess for any swelling in the posterior fossa. -- Continue heparin for now but if no PE would switch to aspirin 81mg daily -- Goal BP normotension -- CT Head tomorrow afternoon to assess swelling -- Echo and telemetry for afib -- Will need cardiac event monitor -- Neuro follow-up 4-6 weeks, please contact us with further questions, we will follow for repeat CT tomorrow Telehealth Consultation Telehealth Information Telehealth Information: I performed this visit using a real-time telehealth connection between my location and the patients location ([facility]). After c onnecting through interactive tele-video, patient was identified by name and date of and/or wristband check.Patient (or authorized healthcare delivery representative) was informed that this was a telemedicine visit and it was being conducted confidentially over secure lines. My office door was closed and no one else was present in the room with me.Patient (or authorized healthcare delivery representative) provided consent to proceed with the visit, expressed an understanding of privacy and security of the telemedicine visit, and gave permission to have a hospital delivery representative in the room in order to assist with the visit and to conduct portions of the visit, as needed. I informed the patient (or authorized healthcare delivery representative) that I reviewed their record and presented the opportunity for them to ask any questions regarding the visit today. The patient agreed to participate. History of Present Illness Reason for Consultation: Stroke Requesting Physician: Dr. Lynch Attending Physician: Claudio Lynch MD History of Present Illness Nivia Bay is a 62 yo F presenting with a day of severe vertigo noticed when she woke up yesterday morning. She had associated nausea/vomiting and difficulty walking. She had a similar issue during covid last summer and still feels vertigious when rolling over in bed at night or sleeping on her side. She has never had a stroke in the past. No weakness, numbness, headache or vision changes. Her vertigo is much better today without any further nausea and vomiting. Allergies Allergy/AdvReac Type Severity Reaction Status Date / Time codeine Allergy Unknown RASH Unverified 03/01/22 08:47 Penicillins Allergy Unknown Rash Verified 03/01/22 08:47 Sulfa (Sulfonamide Allergy Unknown RASH Unverified 03/01/22 08:47 Antibiotics) Iodinated Contrast Media Allergy Swelling Verified 05/01/23 08:34 of Lip/Tongue/Throat Home Medications Medication Instructions Recorded Confirmed Type cetirizine 10 mg tablet 10 mg PO DAILY 05/01/23 05/01/23 History Patient History Medical History Cardiac murmur >35 yrs ago was told by a dr that she had a possible murmur; had an echo 35 yrs ago unsure where thinks may have been mn; no issues since, was told to cut caffeine COVID-19 Osteoarthritis Seasonal allergies Tachycardia pt states has had elevated HR for yrs, was advised to avoid caffeine, FHx of tachycardia-pt unable to provide further details Surgical History Hx of hammer toe correction >30 yrs ago S/P cataract extraction left/right S/P wisdom tooth extraction >45 yrs ago Family History Mother Diabetes Sister Breast cancer Brother Diabetes Social History Smoking Status: Never smoker Second Hand Exposure: No; Do You Dip or Chew Tobacco: No; Tobacco Cessation Education Requested by Patient: No Hx Alcohol Use: No Hx Substance Use: No Preferred Language: Macedonian Communication Ability: Effective Order Manager Required: No Beliefs That Will Affect Care: None Current Living Situation: Family Current Living Situation Comment: lives with daughter Other Information That Helps Us Care for You: No Feels Safe at Home: Yes Safety Concerns: Feels Safe At This Time Assistive Devices: Cane Review of Systems +vertigo Physical Exam Neurological Examination: Mental Status: Awake and alert. Oriented to person, place, and time. Fluent. Comprehension intact. Affect appropriate. Cranial Nerves: II: Reads NIHSS cards, pupils 3/3 to 2/2 III/IV/: Versions intact without nystagmus, no gaze preference. V: Facial sensation symmetric to light touch VII: Facial expression symmetric VIII: Hearing intact to voice IX/X: Palate elevates symmetrically XII: Tongue midline Motor: Strength was symmetric and antigravity throughout. Pronator drift was absent. There were no abnormal movements. Sensory: Sensation to light touch was intact. Coordination: Finger to nose was intact Reflexes: Unable to assess over telemedicine Results & Data Vital Signs (Past 12 Hours) Vital Signs Temp Pulse Pulse Resp BP Pulse Ox O2 Del Method 05/02/23 15:49 36.8 C 96 H 20 154/93 H 91 Room Air 05/02/23 11:22 36.8 C 77 19 143/85 H 93 Room Air 05/02/23 08:00 102 H 05/02/23 08:00 Room Air 05/02/23 07:39 37.0 C 80 20 137/88 95 Nasal Cannula O2 Flow Rate 05/02/23 15:49 05/02/23 11:22 05/02/23 08:00 05/02/23 08:00 05/02/23 07:39 2 Laboratory Results Abnormal lab results 05/01/23 05/01/23 05/02/23 Range/Units 18:13 23:06 06:24 WBC 11.45 H (4.8-10.8) K/ul APTT > 139.0 H* 39.8 H (21.0-31.0) Seconds Glucose (70-99(Fasting)) mg/dl Calcium (8.6-10.3) mg/dl 05/02/23 05/02/23 Range/Units 06:24 06:24 WBC (4.8-10.8) K/ul APTT 65.2 H* (21.0-31.0) Seconds Glucose 122 H (70-99(Fasting)) mg/dl Calcium 8.4 L (8.6-10.3) mg/dl Diagnostic Findings MRI brain - bilateral vermis stroke CTA - Unremarkable
[2023-05-02] MEDS ORDERED: IOVERSOL 350 MG 125mL Prefilled Syringe IV ONE (16:28)
--- NOTE | 2023-05-02 16:30 | Hospitalist Progress Note ---
Date of Service May 02, 2023 Assessment & Plan (1) Cerebellar stroke: Plan 62-year-old lady with PMH of seasonal allergies, osteoarthritis and chronic vertigo [started about a year ago when she had COVID-19 infection] which was generally self-limiting per patient, presented to the ED 05/01 with complaint of worsening vertigo/room was spinning around her and was associated with nausea, vomiting, diarrhea. She is being managed for the following: Vertigo, likely BPPV Cerebellar stroke Patient presents with reports of intractable dizziness associated with nausea, vomiting, diarrhea. Has history of vertigo exacerbated by head turning. Patient does have allergy to contrast, received Solu-Medrol and diphenhydramine prior to CTA head and neck in the ED. CTA head and neck with no acute vascular findings of head and neck but there was questionable filling defect in the right upper lobe pulmonary arteries which prompted US BLE/D-dimer/CTA chest MRI brain obtained 05/02 revealed findings suggestive of acute infarct in the bilateral medial and posterior inferior cerebellum. Get lipid profile, A1c, echo. Get orthostatic vitals. Neurology consulted, baby aspirin when off of heparin. Zio patch monitoring upon discharge. Repeat CT head tomorrow to check for swelling. Continue supportive care with IVF, meclizine, antiemetics. Advance diet as tolerated. Pt reports improving nausea and vomiting. PT/OT. Neuro f/u in 4-[address] scan: Incidental finding of questionable filling defects within the right upper lobe pulmonary arteries which could be due to motion artifact. D-dimer elevated, 950, LE Doppler negative for DVT. Empirically started on IV heparin, CTA chest planned for today after giving Solu-Medrol and diphenhydramine prior to contrast administration. Will follow on the CTA chest. DVT PROPHYLAXIS: On IV heparin drip as able. Full code Admission and Anticipated Discharge Date Admission Date: May 01, 2023 Subjective Patient seen and examined at bedside as a follow-up of vertigo and stroke. Patient was lying in bed, on room air, NAD, reports improving dizziness, improving nausea and vomiting. Advance diet as tolerated, communicated with RN. Patient is still complains of dizziness with movement of her head sideways. MRI noted with cerebellar stroke, neurology consulted, appreciate recommendations. Physical Exam Physical Exam: GENERAL: Alert and oriented x3. NAD, on RA. Obese Class III. HEENT: No pallor, no icterus. Pupils equal, round and reactive to light. Oral mucosa moist. NECK: No JVD, no neck masses. HEART: S1 and S2 heard. Regular rate and rhythm. No murmur, no gallop. RESPIRATORY SYSTEM: Normal AP diameter. No accessory muscle use. No wheezing, no crackles. ABDOMEN: Soft, bowel sounds present, nontender, no distention. CENTRAL NERVOUS SYSTEM: No facial droop. Speech is clear. Obeys simple commands. Moves extremities. EXTREMITIES: No edema, no erythema seen. Results & Data Results & Data Vital Signs (Past 12 Hours) Vital Signs Temp Pulse Pulse Resp BP Pulse Ox O2 Del Method 05/02/23 15:49 36.8 C 96 H 20 154/93 H 91 Room Air 05/02/23 11:22 36.8 C 77 19 143/85 H 93 Room Air 05/02/23 08:00 102 H 05/02/23 08:00 Room Air 05/02/23 07:39 37.0 C 80 20 137/88 95 Nasal Cannula O2 Flow Rate 05/02/23 15:49 05/02/23 11:22 05/02/23 08:00 05/02/23 08:00 05/02/23 07:39 2
--- NOTE | 2023-05-02 19:24 | CT Scan Report ---
CT ANGIOGRAM OF THE CHEST CLINICAL HISTORY: Vertigo. Elevated d-dimer COMPARISON STUDY: Chest x-ray dated 05/24/2022. TECHNIQUE: Following the IV administration of 116 cc of Optiray 350, CT angiogram of the chest was pe rformed from the upper abdomen to the thoracic inlet utilizing the pulmonary embolus protocol. Images are reviewed in the axial, sagittal, and coronal planes. 3-D MIPS images are created and assessed. I V contrast was administered without complication. A dose lowering technique was utilized adhering to the principles of ALARA. CT DOSE: 845.02 mGy.cm FINDINGS: Thyroid: Mildly enlarged and heterogeneous. Thoracic aorta: There is ectasia of the ascending thoracic aorta which measures up to 3.9 cm diameter . The remainder of the thoracic aorta is normal in caliber comment the arch demonstrates standard 3-v essel anatomy. No dissection is seen. Pulmonary vasculature: The pulmonary trunk is normal in caliber. There is segmental and subsegmental pulmonary embolus within a branch of the left upper lobe pulmonary artery. No additional pulmonary em boli are identified bilaterally. Heart: The heart is enlarged and without pericardial effusion. The coronary arteries are calcified. Lungs and pleural spaces: There are trace pleural effusions with dependent atelectasis. No airspace c onsolidation is seen typical for pneumonia. The trachea and central airways are clear. Mediastinum: There is no mediastinal lymphadenopathy. Lexi: Clear. Axillae: There is no axillary lymphadenopathy. Upper abdomen: There is thickening and infiltration of the mesentery around the partially imaged righ t colon. There are also likely tiny foci of adjacent intraperitoneal free air. A small hiatal hernia is incidentally noted. Skeletal structures: The skeletal structures are osteopenic. Degenerative change is noted in the shou lders and spine. No lytic or blastic bony lesions are seen. IMPRESSION: 1. There are segmental and subsegmental pulmonary emboli with a branch of the right upper lobe pulmon sharifa artery. 2. Cardiomegaly and trace pleural effusions. 3. There is no airspace consolidation typical for pneumonia. 4. There is nonspecific soft tissue thickening and there are also likely tiny adjacent foci of intrap eritoneal free air. Infiltration identified the mesentery around the partially imaged right colon. Th azam findings are nonspecific and could be related to an inflammatory process, visceral perforation, o r possibly carcinomatosis. A contrast-enhanced abdominal CT scan is recommended for further assessmen t. 5. Additional findings as above. Findings were communicated to Dr. Lynch at the time of interpretation. ACT 112: Negative or not required by law. Electronically signed by: Raghu Guan M.D. 05/02/2023 7:23 PM
[2023-05-02] MEDS ORDERED: SODIUM CHLORIDE 0.9% 1000ML 1,000 ML IV SCH (20:00)
[2023-05-03 06:29] LABS: Hemoglobin 12.8 g/dl (12.0-16.0); Mean Corpuscular Hemoglobin 29.7 pg (25.0-34.0); Mean Corpuscular Hgb Conc 34.6 g/dL (32.0-36.0); Mean Corpuscular Volume 85.8 fL (80.0-100.0); Mean Platelet Volume 10.3 fL (9.4-12.4); Platelet Count 239 K/uL (130-400); RDW Coefficient of Variation 13.1 % (11.5-14.5); RDW Standard Deviation 41.7 fL (36.4-46.3); Red Blood Count 4.31 M/uL (4.20-5.40); White Blood Count 10.02 K/ul (4.8-10.8)
[2023-05-03 06:41] LABS: Calcium 8.4 mg/dl (8.6-10.3); Chol HDL Ratio 2.9 (0-5); Creatinine Clr Calc Pharmacy 102.6 ml/min; Est GFR (Non-African American) 85.4 ml/min; Magnesium 1.9 mg/dl (1.7-2.4); Phosphorus 2.5 mg/dl (2.5-4.9); Potassium 3.4 mmol/L (3.5-5.1)
[2023-05-03 07:10] LABS: Partial Thromboplastin Time 112.7 Seconds (21.0-31.0)
[2023-05-03] MEDS ORDERED: POTASSIUM CHLORIDE CRTAB 20 MEQ TABCR PO STA (08:12)
[2023-05-03] MEDS: HEPARIN SODIUM/DEXTROSE 25,000 UNITS/500 ML BAG IV SCH ×3 (08:25→14:47)
[2023-05-03 09:16] LABS: Estimated Average Glucose 120 mg/dl; Hemoglobin A1C 5.8 % (4.5-5.6)
--- NOTE | 2023-05-03 13:30 | CT Scan Report ---
CT head/brain wo con CLINICAL HISTORY: f/u to check for swelling around infarct. Technique: Contiguous axial CT images of the head were acquired from the base of the skull to the shelby juan without intravenous contrast administration. Images were viewed in brain, subdural and [facility]. Automated dose lowering techniques and/or adjustment according to patient size were utilized for this exam. Comparison: Comparison is made to CTA head 05/01/2023 and MRI brain 05/02/2023 Findings: Again noted is hypodensity compatible with edema in the posterior median cerebellum. No evidence of h emorrhage. No significant herniation is seen. Right maxillary opacification is seen. The orbits appear normal. There are no acute fractures of the calvaria or scalp swelling. Impression: Redemonstration of edema compatible with infarct in the cerebellum. No hemorrhage is seen. ACT 112: Negative or not required by law. Electronically signed by: Yosef Quinones M.D. 05/03/2023 1:27 PM
--- NOTE | 2023-05-03 14:49 | Neurology Progress Note ---
Date of Service May 03, 2023 Assessment & Plan (1) Cerebellar stroke: Cerebellar stroke presenting with isolated vertigo, no other deficits noted on exam. Concern for embolic phenomenon as no significant large vessel athero. Would continue telemetry, echo is pending. If PEs are found on CTA chest then anticoagulation is reasonable, otherwise would just use aspirin 81mg daily for secondary stroke prevention. Statin if LDL >70. Therapy evals. Will need zio patch for afib detection as this is the most likely cause. While unlikely, given the size of the stroke would repeat a head CT tomorrow afternoon to assess for any swelling in the posterior fossa. -- Continue heparin for now but if no PE would switch to aspirin 81mg daily -- Goal BP normotension -- CT Head tomorrow afternoon to assess swelling -- Echo and telemetry for afib -- Will need cardiac event monitor -- Neuro follow-up 4-6 weeks, please contact us with further questions, we will follow for repeat CT tomorrow UPDATE: given worsening of edema on her head CT and her complaint of feeling sleepy I am concerned for early obstructive hydrocephalus and arranged stat transfer [place] [facility] for neurosurgical evaluation and potential intervention. Subjective Telehealth Information I performed this visit using a real-time telehealth connection between my location and the patients location ([facility]). After connecting through interactive tele-video, patient was identified by name and date of and/or wristband check.Patient (or authorized healthcare welding equipment sales representative) was informed that this was a telemedicine visit and it was being conducted confidentially over secure lines. My office door was closed and no one else was present in the room with me.Patient (or authorized healthcare welding equipment sales representative) provided consent to proceed with the visit, expressed an understanding of privacy and security of the telemedicine visit, and gave permission to have a hospital welding equipment sales representative in the room in order to assist with the visit and to conduct portions of the visit, as needed. I informed the patient (or authorized healthcare welding equipment sales representative) that I reviewed their record and presented the opportunity for them to ask any questions regarding the visit today. The patient agreed to participate. Patient reports continuing to feel dizzy today, no worse than yesterday. She began to have a mild intermittent headache but otherwise reports feeling very sleepy which is new and unusual for her. Review of Systems +tired/sleey Physical Exam Neurological Examination: Mental Status: Awake and alert. Oriented to person, place, and time. Fluent. Comprehension intact. Affect appropriate. Cranial Nerves: II: Reads NIHSS cards, pupils 3/3 to 2/2 III/IV/: Versions intact without nystagmus, no gaze preference. V: Facial sensation symmetric to light touch VII: Facial expression symmetric VIII: Hearing intact to voice IX/X: Palate elevates symmetrically XII: Tongue midline Motor: Strength was symmetric and antigravity throughout. Pronator drift was absent. There were no abnormal movements. Sensory: Sensation to light touch was intact. Coordination: Finger to nose was intact Reflexes: Unable to assess over telemedicine Results & Data Vital Signs (Past 12 Hours) Vital Signs Temp Pulse Pulse Pulse Resp BP Pulse Ox 05/03/23 11:26 36.5 C 68 19 149/90 H 94 05/03/23 09:55 78 05/03/23 09:50 05/03/23 08:01 36.4 C L 68 20 124/83 91 05/03/23 03:14 36.6 C 89 18 137/86 95 O2 Del Method 05/03/23 11:26 Room Air 05/03/23 09:55 05/03/23 09:50 Room Air 05/03/23 08:01 Room Air 05/03/23 03:14 Room Air Laboratory Results Abnormal lab results 05/03/23 05/03/23 05/03/23 Range/Units 05:25 05:25 05:25 APTT 112.7 H* (21.0-31.0) Seconds Potassium 3.4 L (3.5-5.1) mmol/L Chloride 108 H (98-107) mmol/L Glucose 127 H (70-99(Fasting)) mg/dl Hemoglobin A1c 5.8 H (4.5-5.6) % Calcium 8.4 L (8.6-10.3) mg/dl Diagnostic Findings CT head - on my review there is significant effacement of the 4th ventricle with early opening of the temporal horns.
--- NOTE | 2023-05-03 15:39 | Discharge Summary ---
Date of Service May 03, 2023 Admission HPI Per Admitting Provider 62-year-old female with PMH seasonal allergies, osteoarthritis, and other problems to below who presents to the ED for evaluation of dizziness. History obtained from the patient and review of outpatient PCP records. Patient reports a history of vertigo about 1 year ago while she had COVID-19. Patient reports it was relatively self-limiting and she did not seek medical care. Patient reports she woke up around 5 AM this morning and when she got out of bed the room was spinning around her. She was able to ambulate to the bathroom and had nausea, vomiting, diarrhea. Patient then presented to the ED for further evaluation. Patient reports she otherwise has been feeling well recently. Reports that during her previous episode of vertigo, she noted that it was brought on by laying on her side which she does not do anymore. No other recent illnesses, fevers, chills. Denies chest pain. Reports mild shortness of breath. No syncopal event. Denies abdominal pain. No urinary symptoms. In the ED, head/neck CTAs are unremarkable. Patient received diazepam, meclizine, Zofran, IVF and continues to have significant symptoms. She also received IV diphenhydramine and IV Solu-Medrol for premedication for CTA due to dye allergy. Admission Exam Per Admitting Provider Constitutional: + ill appearing; no acute distress Eyes: PERRL, conjunctivae normal, anicteric sclerae ENMT: external ear and nose normal, oropharynx normal Respiratory: normal respiratory effort, lungs clear to auscultation Cardiovascular: Rate/Rhythm: regular rate and regular rhythm Vessels: normal peripheral pulses Extremities: no edema Gastrointestinal (Abdomen): normal bowel sounds, soft, nontender, no hepatosplenomegaly one episode of vomiting during exam Musculoskeletal: no cyanosis or clubbing, extremities motor strength 5/5 Skin: no rashes, warm and dry Neurologic: PERRL, EOMI, accommodation nl, no face palsy, no dysarthria moves all extremities and awake; no focal motor deficits Motor/Sensory: no pronator drift Coordination: normal [id number] test and normal pcfb-if-mcpt test Psychiatric: A+Ox3, euthymic affect Principal Diagnosis Acute cerebellar stroke with worsening edema Concern for early obstructive hydrocephalus Abnormal incidental abdominal imaging in CTA chest, will need CT abdomen pelvis with IV contrast. Discharge Exam GENERAL: Alert and oriented x3. NAD, on RA. Obese Class III. HEENT: No pallor, no icterus. Pupils equal, round and reactive to light. Oral mucosa moist. NECK: No JVD, no neck masses. HEART: S1 and S2 heard. Regular rate and rhythm. No murmur, no gallop. RESPIRATORY SYSTEM: Normal AP diameter. No accessory muscle use. No wheezing, no crackles. ABDOMEN: Soft, bowel sounds present, nontender, no distention. CENTRAL NERVOUS SYSTEM: No facial droop. Speech is clear. Obeys simple commands. Moves extremities. EXTREMITIES: No edema, no erythema seen. Discharge Data Allergies Allergy/AdvReac Type Severity Reaction Status Date / Time codeine Allergy Unknown RASH Unverified 03/01/22 08:47 Penicillins Allergy Unknown Rash Verified 03/01/22 08:47 Sulfa (Sulfonamide Allergy Unknown RASH Unverified 03/01/22 08:47 Antibiotics) Iodinated Contrast Media Allergy Swelling Verified 05/01/23 08:34 of Lip/Tongue/Throat Consultations 05/01/23 08:56 ED Decision to Admit Stat 05/02/23 14:28 Consult Neurology Routine 05/03/23 15:22 Burn CD for patient Stat Ordered Studies 05/01/23 07:05 CT head/brain wo con Stat 05/01/23 08:50 CT angio head w con Stat CT angio neck with con Stat 05/01/23 11:15 US venous duplex leg [US venous doppler LE BI] Routine 05/02/23 00:00 MR brain wo con Stat 05/02/23 10:41 CT angio chest PE protocol Routine 05/03/23 13:00 CT head/brain wo con Routine Hospital Course (1) Cerebellar stroke: Plan 62-year-old lady with PMH of seasonal allergies, osteoarthritis and chronic vertigo [started about a year ago when she had COVID-19 infection] which was generally self-limiting per patient, presented to the ED 05/01 with complaint of worsening vertigo/room was spinning around her and was associated with nausea, vomiting, diarrhea. She was managed for the following: Chronic Vertigo, likely BPPV Cerebellar stroke with worsening of vertigo Patient presents with reports of intractable dizziness associated with nausea, vomiting, diarrhea. Has history of vertigo exacerbated by head turning. Patient does have allergy to contrast, received Solu-Medrol and diphenhydramine prior to CTA head and neck in the ED. CTA head and neck with no acute vascular findings of head and neck but there was questionable filling defect in the right upper lobe pulmonary arteries which prompted US BLE/D-dimer/CTA chest MRI brain obtained 05/02 revealed findings suggestive of acute infarct in the bilateral medial and posterior inferior cerebellum. Repeat CT Head w/ worsening edema per Neuro, concern for early obstructive hydrocephalus. LDL 61, A1c 5.8, ECHO with EF of 55 to 60%, no evidence of atrial septal defect. No significant interatrial shunt. Neurology consulted, baby aspirin when/if off of Anticoagulation. Zio patch monitoring upon discharge. Transfer to tertiary [facility] for neuro ICU monitoring due to worsening cerebellar edema associated with a stroke. Continue supportive care with IVF, meclizine, antiemetics. Advance diet as tolerated. Pt reports improving nausea and vomiting. Patient still with dizziness. Patient reports getting more sleepy by the day during transfer paperwork. PT/OT. Neuro f/u in 4-6 weeks on DC, for now being transferred to [place]. Pulmonary embolism: Patient started on heparin drip, will continue the heparin drip until patient deemed stable neurologically/deemed no need for surgical intervention. And will need Eliquis on discharge from tertiary [facility]. Patient is agreeable to Eliquis. Abnormal CT scan: Incidental finding of questionable filling defects within the right upper lobe pulmonary arteries which could be due to motion artifact. D-dimer elevated, 950, LE Doppler negative for DVT. -->> CTA chest showed PE and also showed incidental abnormal abdominal findings. Recommendation is to get CT abdomen pelvis with IV contrast, since patient is being transferred, this will need to be done at tertiary [facility]. Patient is also made aware. DVT PROPHYLAXIS: On IV heparin drip Full code Patient being discharged to [facility] with following instruction at the point of discharge: Because of worsening edema around the cerebellar infarct, you are being transferred to [facility] for neuro ICU monitoring. Also you were diagnosed with blood clot in the lungs, you will be discharged on heparin drip to tertiary center. You will need to be put on Eliquis once deemed neurologically stable/no need for surgical intervention. Also because of abnormal abdominal imaging incidentally caught on CTA chest, you will need CT abdomen pelvis with IV contrast at tertiary [facility]. You had gotten Solu- Medrol and Benadryl prior to contrast administration while in here due to your history of contrast allergy. Home Health Attestation I certify that this patient is under my care and that I, or a physicians contact lens assistant working with me, had a face to-face encounter that meets the home health [id number] encounter requirements with this patient. The encounter with the patient was in whole, or in part, for the following medical condition, which is the primary reason for home health care (list medical condition): I certify that, based on my findings, the following services are medically necessary home health services: My clinical findings support the need for the above services because: Further, I certify that my clinical findings support that this patient is homebound (i.e. absences from home require considerable and taxing effort and are for medical reasons or yazidi services or infrequently or of short duration when for other reasons) because: Certification for Home Health Services: Based on the above findings, I certify that this patient is confined to the home and needs intermittent senior living care, physical therapy and/or speech therapy or continues to need occupational therapy. The patient is under my care, and I have initiated the establishment of the plan of care. This patient will be followed by a physician who will periodically review the plan of care. Total Time Total Time Spent Total Time Spent (In Minutes): 45 Discharge Plan Discharge Items Patient Disposition: Transfer Acute Care Hospital Reason For Visit: VERTIGO Discharge Diagnosis: Acute cerebellar stroke with worsening edema Concern for early obstructive hydrocephalus Abnormal incidental abdominal imaging in CTA chest, will need CT abdomen pelvis with IV contrast. Activity: As commented below Activity Comment: As per tertiary care recommendation. Non-emergency contact: Primary Care Provider Call non-emergency contact if: you have any medication questions, your symptoms worsen and your temperature is above 101 Follow-up/Referrals: Thom Duggan MD [Primary Care Provider] - Diet: Heart Healthy Addtl Attending Provider Instructions: Because of worsening edema around the cerebellar infarct, you are being transferred to tertiary center for neuro ICU monitoring. Also you were di agnosed with blood clot in the lungs, you will be discharged on heparin drip to tertiary center. You will need to be put on Eliquis once deemed neurologically stable/no need for surgical intervention. Also because of abnormal abdominal imaging incidentally caught on CTA chest, you will need CT abdomen pelvis with IV contrast at tertiary care center. You had gotten Solu-Medrol and Benadryl prior to contrast administration while in here due to your history of contrast allergy. Your inpatient medication will be copied and pasted here: Current Inpatient Medications Acetaminophen (Acetaminophen 325 Mg Tab) 650 mg PO Q4H PRN PRN Reason: Pain or Fever Stop: 05/31/23 11:36 Heparin Sodium/Dextrose (Heparin Sodium/Dextrose) 25,000 units in 500 mls @ 26 mls/hr IV .[id number] [facility]; Protocol Stop: 05/31/23 11:29 Last Admin: 05/03/23 14:47 Dose: Not Given Promethazine HCl 25 mg/ Sodium (Chloride) 51 mls @ 204 mls/hr IV PRE-TREAT PRN PRN Reason: pretreat PT Stop: 05/31/23 13:40 Last Infusion: 05/01/23 21:20 Dose: Infused Promethazine HCl 12.5 mg/ (Sodium Chloride) 50.5 mls @ 202 mls/hr IV Q6H PRN PRN Reason: Nausea And Vomiting Stop: 05/31/23 20:27 Sodium Chloride (Nss 1000ml) 1,000 mls @ 45 mls/hr IV .[id number] [facility] Stop: 05/05/23 14:40 Last Admin: 05/02/23 21:32 Dose: 45 mls/hr Meclizine HCl (Meclizine Hcl 25 Mg Tab) 25 mg PO TID PRN PRN Reason: vertigo Stop: 05/31/23 11:36 Last Admin: 05/02/23 08:07 Dose: 25 mg Meclizine HCl (Meclizine Hcl 25 Mg Tab) 25 mg PO PRE-TREAT PRN PRN Reason: pretreat PT Stop: 05/31/23 13:40 Ondansetron HCl (Ondansetron Inj 2 Mg/Ml 2 Ml Vial) 4 mg IV Q6H PRN PRN Reason: Nausea And Vomiting Stop: 05/31/23 11:36 Last Admin: 05/02/23 01:15 Dose: 4 mg Pending Studies at Discharge: No Stand-Alone Forms: [facility] Skilled Items Patient informed of condition?: Yes DNR: No Discharge Level of Care: Other Communicable Disease: No Discharge Prognosis: Other Lines: Peripheral IV Urinary Catheter: No Medications and DC Order Prescriptions: Continued cetirizine 10 mg Tablet 10 mg PO DAILY Discharge Orders: Discharge Order (Routine); Ordered 05/03/23 Ordered By: Claudio Lynch Admission Data Admit Date/Time: 05/02/23 16:11 Attending Provider: Claudio Lynch Admit Provider: Racheal Morales Primary Care Provider: Thom Duggan Other Providers: Racheal Morales ; Porfirio Bean
[2023-05-03 15:43] LABS: Partial Thromboplastin Ratio 2.3
[2023-05-03 15:52] LABS: Partial Thromboplastin Time 64.9 Seconds (21.0-31.0)
== END 2023-05-03 16:53 | disposition short-term general hospital (02) | DRG 64 ==
LOC: 2S 06:58 → ED 06:58 → SUATTDRO 09:21 → 2S 11:09